=== PATIENT | male | born 1980 | race African-American/Black ===

== ENCOUNTER → 2016-04-12 | Outpatient (CLI) | payer OTHER ==
--- NOTE | 2016-04-12 10:49 | RAD ---
Lumbar spine, 2 views, 04/12/2016: History: Low back pain, ankle injury The lumbar vertebral heights are well-maintained. There is a minimal spondylolisthesis at L5-S1. There appears to be underlying spondylolysis at L5. The intervertebral disc spaces are well preserved. The paraspinous soft tissues are unremarkable. IMPRESSION: Spondylolysis at L5 with a mild associated spondylolisthesis at L5-S1. Left ankle, 2 views, 04/12/2016: There is a metallic plate with multiple screws transfixing an old healed fracture of the distal fibula. Two of the screws extend into the distal tibia. There are 3 small screw fragments in the medial malleolus apparently transfixing an old healed fracture. No acute fracture or dislocation is evident. There is minimal degenerative change at the ankle joint. IMPRESSION: 1. Old, healed, internally fixed fractures of the distal fibula and medial malleolus. 2. No acute abnormality is detected.
== END | disposition home or self-care (01) ==
LOC: RAD 09:58
PROVIDERS: ATTEND Surgery
DX: M19.072 Primary osteoarthritis, left ankle and foot (principal); M43.17 Spondylolisthesis, lumbosacral region
CPT/HCPCS: 72100; 73600